=== PATIENT | male | born 1970 | race Caucasian/White ===

== ENCOUNTER 2025-02-28 11:45 | Outpatient (OUT) | payer OTHER, SELFPAY ==
--- OUTSIDE RECORDS SUMMARY | 2025-02-28 11:52 | XMS_ITS | Clinical Summary ---
Author Organization [facility] Address [address] [place] [id number] Care Team Providers Care Rn Medicare Name Role Phone Herb Londono MD Primary Care Provider [phone] Vinnie Seals Unavailable [phone] Herb Londono MD Unavailable [phone] Allergies Active AllergyReactionsCriticalityNoted DbxdDqaeypgpPxgktzzgslFmknjdk09/20/2017 Sulfa (Sulfonamide Antibiotics)Rash01/13/2017 Medications No known medications Family History Medical HistoryRelationCommentsCoronary Artery DiseaseFatherDiabetesFatherStroke FatherDiabetesMotherHypertensionMotherRelationStatusCommentsFatherMother Social History Tobacco UseTypesPacks/DayYears UsedDateSmoking Tobacco: NeverAlcohol UseStandard Drinks/WeekCommentsNo0 (1 standard drink = 0.6 oz pure alcohol)Sex and Gender InformationValueDate RecordedSex Assigned at BirthNot on fileLegal SexMale 07/22/2015 11:51 AM EDTGender IdentityNot on fileSexual OrientationNot on file Last Filed Vital Signs Vital SignReadingTime TakenCommentsBlood Idaccrue266/65001/13/2017 10:21 AM EDT Dczso668101/13/2017 10:21 AM EDTTemperature--Respiratory Qdsh874201/13/2017 10:21 AM EDTOxygen Omvjziqbyv912%01/13/2017 10:21 AM EDTInhaled Oxygen Concentration-- Lkzmqa07.9 kg (174 lb)01/13/2017 10:21 AM XLVZacemb687.8 cm (5' 10 )01/13/2017 10:21 AM EDTBody Mass Index24.9701/13/2017 10:21 AM EDT Plan of Treatment Health MaintenanceDue DateLast DoneCommentsAnxiety Duuwzlimp71/30/1988Depression Nrwrkseij99/30/1988HIV Dvzkmtfpy55/30/1988Hepatitis C Tfwpvlyfa08/30/1988 DTaP,Tdap,Td Vaccine (1 - Tdap)1989Hepatitis B Vaccine (1 of 3 - 19+ 3- dose series)1989Lipid Hcnfnipdj89/30/2005CT Ofrolqrjskqx17/30/2015 Cologuard (FIT-DNA)02/22/20158016Jakyytlkajw91/30/2015Colorectal Cancer Screening 2015Diabetes Ptmscxcuv06/30/2015Fecal Occult Blood2015Sigmoidoscopy 2015Pneumococcal Vaccine: 50+ (1 of 1 - PCV)02/23/2020Shingrix Vaccine (1 of 2)02/23/2020Covid-19 Vaccine ( - season), 02/26/2021, 05/20/2020, Additional history existsInfluenza Vaccine (#1) 512/, 02/17/2022, 02/17/2021, Additional history exists Insurance Care Teams Team MemberRelationshipSpecialtyStart DateEnd Herb Londono MD PCP - GeneralInternal Medicine04/26/15 Vinnie Seals [address] [place] [address] Primary Staff PhysicianCardiology07/12/18 Herb Londono MD [address] [place] [address] ReferringInternal Pqudbxsv39/20/24
--- OUTSIDE RECORDS SUMMARY | 2025-02-28 11:52 | XMS_ITS | Clinical Summary ---
Author Organization [facility] Address [address] [place] [address] Phone Care Team Providers Care Panel Wirer Name Role Phone Unavailable Primary Care Provider Unavailabl e Social History Tobacco UseTypesPacks/DayYears UsedDateSmoking Tobacco: Never AssessedSex and Gender InformationValueDate RecordedSex Assigned at BirthNot on fileLegal Sex Male03/21/2022 3:48 PM ESTGender IdentityNot on fileSexual OrientationNot on file Plan of Treatment Not on file
--- OUTSIDE RECORDS SUMMARY | 2025-02-28 11:52 | XMS_ITS | Clinical Summary ---
Author Organization [facility] Address [address] [place] [address] Care Team Providers Care Hardwood Floor Refinisher Name Role Phone Herb Londono MD Primary Care Provider [phone] Allergies Active AllergyReactionsCriticalityNoted BuhzMyrylsvvRcfmdyxesck32/20/2017 Other Reaction(s): Unknown Sulfa ZspuieizagtEqbnSyr62/20/2017 Other Reaction(s): Unknown Medications No known medications Active Problems ProblemNoted DateDiagnosed DateRefractive error12/10/2022 Family History Medical HistoryRelationNameCommentsCataractsMotherGlaucomaNeg HxMacular degenerationNeg HxRelationNameStatusCommentsMother Social History Tobacco UseTypesPacks/DayYears UsedDateSmoking Tobacco: Never Tobacco Cessation:Counseling Given: Not Answered Sex and Gender InformationValueDate RecordedSex Assigned at BirthNot on file Legal JvqIjhf8808/24/2022 8:31 PM EDTGender IdentityNot on fileSexual Orientation Not on file Plan of Treatment Health MaintenanceDue DateLast DoneCommentsCT Fpecyjuxbsxf1970FIT-DNA 1970FIT1970FOBT1970 2689Tpebvzgkvrlrt1970MMR Vaccines (1 of 1 - Standard series)1971DTaP/Tdap/Td Vaccines (1 - Tdap)1977Hepatitis B Vaccines (1 of 3 - 19+ 3-dose series)1989COVID-19 Vaccine ( - season), 02/26/2021, 05/20/2020, Additional history exists Influenza Vaccine (#1)/, 04/08/2023, 02/17/2022, Additional history guihkrZvjtufbuhmk73/03/301694/olorectal Cancer Screening 07/27/2034HIB VaccinesAged OutNo longer eligible based on patient's age to complete this topicHPV VaccinesAged OutNo longer eligible based on patient's age to complete this topicHepatitis A VaccinesAged OutNo longer eligible based on patient's age to complete this topicIPV VaccinesAged OutNo longer eligible based on patient's age to complete this topicMeningococcal B VaccineAged OutNo longer eligible based on patient's age to complete this topicMeningococcal VaccineAged OutNo longer eligible based on patient's age to complete this topicPneumococcal Vaccine: Pediatrics (0 to 5 Years) and At-Risk Patients (6 to 64 Years)Aged Out No longer eligible based on patient's age to complete this topicRotavirus VaccinesAged OutNo longer eligible based on patient's age to complete this topic Insurance Care Teams Team MemberRelationshipSpecialtyStart DateEnd Date Herb Londono MD [address] [place] [address] PCP - GeneralInternal Medicine12/09/22
--- NOTE | 2025-02-28 12:07 | XR_ITS ---
[address] [address] Patient Name: ANSLEY CLARK MRN: [id number] date: 1970 Sex: M Assigned Patient Location: RAD Current Patient Location: [facility] Accession/Order Number: [id number] Exam Date: 02/28/2025 11:55 Report Date: 02/28/2025 23:54 At the request of: CLYDE HENRIQUEZ DPBrittany Procedure: XR foot RT min 3V 4 views right foot HISTORY: Right foot pain secondary to fall. Posterior lateral pain. Painful inflamed. Adequate bony alignment without acute displaced fracture seen with standing views. Unremarkable soft tissues. XR/XR foot RT min 3V IMPRESSION: No acute findings. Impression dictated by: Konrad Aaron M.D. 02/28/2025 11:54 PM Dictation Location: [place] [address] Electronically authenticated by: [id number] Y Date: 02/28/2025 23:54
== END 2025-02-28 11:46 | disposition home or self-care (01) ==
LOC: RAD 11:49
PROVIDERS: Visit Provider Podiatrist Foot & Ankle Surgery
DX: M79.671 Pain in right foot (principal)
CPT/HCPCS: 73630